=== PATIENT | female | born 1935 | race Two or more races ===

== ENCOUNTER 2024-04-07 03:43 | Emergency (ER) | payer MEDICARE, OTHER ==
[~2024-04-07] VITALS: Ht 165.1 cm; Wt 81.6 kg
[2024-04-07] MEDS ORDERED: ONDANSETRON HCL/PF 4 MG/2 ML VIAL ONE (04:05)
[2024-04-07] MEDS ORDERED: diphenhydrAMINE HCL 50 MG/ML VIAL ONE (04:05)
[2024-04-07] MEDS ORDERED: MECLIZINE HCL 25 MG TABLET ONE (04:06)
[2024-04-07] MEDS: IV NS 0.9% 1,000 ML BAG IV ONE (04:07)
[2024-04-07] MEDS: diphenhydrAMINE HCL 50 MG/ML VIAL IV ONE (04:07)
[2024-04-07] MEDS: ONDANSETRON HCL/PF 4 MG/2 ML VIAL IVP ONE (04:07)
[2024-04-07] MEDS: MECLIZINE HCL 12.5 MG TABLET PO ONE (04:08)
[2024-04-07 04:18] LABS: BASOPHILS % (AUTO) 0.4 % (0.0-2.0); EOSINOPHILS # (AUTO) 0.1 K/uL (0.0-0.7); EOSINOPHILS % (AUTO) 1.7 % (0.0-6.0); HEMATOCRIT 32 % (33-45); HEMOGLOBIN 10.8 g/dL (11.5-14.8); LYMPHOCYTES % (AUTO) 26.2 % (20.0-44.0); MEAN CORPUSCULAR HEMOGLOBIN 31 PG (26.0-33.0); MEAN CORPUSCULAR HGB CONC 33 g/dl (31.0-36.0); MEAN CORPUSCULAR VOLUME 92 fL (82-100); MONOCYTES # (AUTO) 0.6 K/uL (0.1-1.30); MONOCYTES % (AUTO) 8.4 % (2.0-12.0); NEUTROPHILS # (AUTO) 4.8 K/uL (1.8-8.9); NEUTROPHILS % (AUTO) 63.3 % (43.0-81.0); PLATELET COUNT (AUTO) 246 K/uL (150-450); RED BLOOD CELL COUNT(AUTO) 3.53 MIL/uL (4.0-5.2); RED CELL DISTRIBUTION WIDTH 14.6 % (11.5-15.0); WHITE BLOOD COUNT (AUTO) 7.6 K/uL (4.3-11.0)
[2024-04-07 04:27] LABS: INR 0.99 (0.91-1.10); PARTIAL THROMBOPLASTIN TIME 28.4 SEC (24.3-34.3); PROTHROMBIN TIME 10.5 SECS (9.2-11.1)
[2024-04-07 04:32] LABS: ALANINE AMINOTRANSFERASE 20 U/L (12-78); ALBUMIN 3.3 g/dL (3.4-5.0); ALKALINE PHOSPHATASE 61 U/L (46-116); ASPARTATE AMINOTRANSFERASE 11 U/L (15-37); BILIRUBIN,DIRECT 0.1 mg/dL (0.0-0.2); BILIRUBIN,TOTAL 0.5 mg/dL (0.2-1.0); CALCIUM, SERUM 9.3 mg/dL (8.5-10.1); CARBON DIOXIDE 27 mmol/L (21-32); CHLORIDE 98 mmol/L (98-107); CREATININE 1.3 mg/dL (0.6-1.3); GLUCOSE 113 mg/dL (74-106); POTASSIUM 4.7 mmol/L (3.5-5.1); SODIUM SERUM 133 mmol/L (136-145); UREA NITROGEN, BLOOD 17 mg/dL (7-18)
[2024-04-07] MEDS ORDERED: MECL-159 PO (05:34)
[2024-04-07] MEDS ORDERED: ONDA4TAB5 PO (05:34)
[2024-04-07 06:03] VITALS: BP 138/79; TEMP 98.4; O2SAT 98
== END 2024-04-07 06:09 | disposition home or self-care (01) ==
LOC: ER 03:45
DX: R42 Dizziness and giddiness (principal); R11.2 Nausea with vomiting, unspecified; R51.9 Headache, unspecified; I10 Essential (primary) hypertension; E11.9 Type 2 diabetes mellitus without complications
CPT/HCPCS: 99285; 96374; 70450; 71045; 96361; 96375; 93005; 85025; 80048; 80076; 36415; 85730; J8597; J1200; J2405; J7030